=== PATIENT | female | born 1980 | race Caucasian/White ===

== ENCOUNTER → 2021-03-27 | Outpatient (CLI) | payer BC ==
[2021-03-27 07:53] LABS: BASO # 0.03 K/mm3 (0.02-0.10); EOS # 0.07 K/mm3 (0.04-0.40); EOS % 0.9 % (1.0-5.0); HEMATOCRIT 36.6 % (37.0-47.0); LYMPH# 2.19 K/mm3 (1.50-4.00); MEAN CELL VOLUME 92 fl (78-100); MEAN CORPUSCULAR HEMOGLOBIN 30 pg (27-31); MEAN CORPUSCULAR HGB CONC 33 g/dL (33-37); MEAN PLATELET VOLUME 9.1 fl (7.4-10.4); MONO # 0.48 K/mm3 (0.20-0.80); NEU # 5.43 K/mm3 (1.40-6.50); PLATELET COUNT 300 K/mm3 (130-400); RED BLOOD COUNT 3.97 M/mm3 (4.10-5.30); RED CELL DISTRIBUTION WIDTH 14.4 % (11.5-14.5); WHITE BLOOD COUNT 8.2 K/mm3 (4.8-10.8)
[2021-03-27 10:57] LABS: URINE APPEARANCE HAZY; URINE COLOR YELLOW
[2021-03-27 10:58] LABS: URINE BILIRUBIN NEGATIVE (NEGATIVE); URINE BLOOD NEGATIVE (NEGATIVE); URINE GLUCOSE NEGATIVE (NEGATIVE); URINE KETONE 1+ (NEGATIVE); URINE LEUKOCYTE ESTERASE NEGATIVE (NEGATIVE); URINE MUCUS PRESENT (NOT PRESENT); URINE NITRATE NEGATIVE (NEGATIVE); URINE PROTEIN(semi-quant) TRACE (NEGATIVE); URINE UROBILINOGEN NORMAL (NORMAL); URINE WBC 0-1 /hpf (0-3)
[2021-03-28 11:36] LABS: ALBUMIN 4.1 g/dL (3.5-5.0); POTASSIUM 4.1 mmol/L (3.5-5.1)
[2021-03-28 11:37] LABS: CALCIUM 9.3 mg/dL (8.3-10.5)
[2021-03-28 11:39] LABS: TOTAL PROTEIN 6.8 g/dL (6.4-8.3)
[2021-03-28 11:40] LABS: TOTAL BILIRUBIN 0.5 mg/dL (0.2-1.2)
== END ==
LOC: RAD 07:15
PROVIDERS: Family Medicine
DX: R10.11 Right upper quadrant pain (principal)

== ENCOUNTER → 2023-11-11 | Outpatient (CLI) | payer BC ==
[2023-11-11 11:07] LABS: HEMATOCRIT 45.3 % (37.0-47.0); MEAN PLATELET VOLUME 9.1 fl (7.4-10.4); RED BLOOD COUNT 4.82 M/mm3 (4.10-5.30); RED CELL DISTRIBUTION WIDTH 12.4 % (11.5-14.5); WHITE BLOOD COUNT 7.9 K/mm3 (4.8-10.8)
[2023-11-11 11:16] LABS: ALBUMIN 4.3 g/dL (3.5-5.0)
[2023-11-11 11:17] LABS: CALCIUM 9.5 mg/dL (8.3-10.5)
[2023-11-11 11:18] LABS: TOTAL PROTEIN 7.3 g/dL (6.4-8.3)
[2023-11-11 11:20] LABS: TOTAL BILIRUBIN 0.4 mg/dL (0.2-1.2)
[2023-11-11 22:39] LABS: FOLATE (FOLIC ACID) 4.3 ng/mL (2.0-20.0)
== END ==
LOC: LAB 10:50
PROVIDERS: Nurse Practitioner
DX: G43.709 Chronic migraine without aura, not intractable, without status migrainosus (principal); R79.0 Abnormal level of blood mineral; R20.2 Paresthesia of skin

== ENCOUNTER → 2024-04-21 | Outpatient (CLI) | payer OTHER | LOC: MAMMO 10:50 | DX: Z12.31 Encounter for screening mammogram for malignant neoplasm of breast (principal); M25.512 Pain in left shoulder ==